=== PATIENT | female | born 1965 | race Caucasian/White ===

== ENCOUNTER 2016-08-26 10:55 | Outpatient (RCR) | payer OTHER ==
--- NOTE | 2016-07-13 15:52 | Diagnostic Imaging Report ---
INDICATION: Followup chest x-ray, no complaints. COMPARISON STUDY: Chest radiograph from June 18. FINDINGS: Frontal and lateral views of the chest demonstrate a 2.4 cm mass in the right upper lobe which has decreased from 4.1 cm. A nodule in the left lung base with adjacent fibrosis has not appreciably changed. The heart size and vascularity are normal. IMPRESSION: 1. Decrease in size of the mass in the right upper lobe. 2. A nodule anteriorly in the left lung base and surrounding infiltrates remain stable. Dictated by: Dictated on workstation # [id number]
--- NOTE | 2016-08-19 14:22 | Diagnostic Imaging Report ---
PA and lateral views of the chest. INDICATION: Solitary lung nodule. COMPARISON: 07/13/2016. FINDINGS: There is a 2.4 cm right upper lobe nodule which appears similar to 07/13/2016. However when compared to earlier radiograph of 06/18/2016, it is smaller at this point compared to prior measurements of more than 4 cm. There is background pulmonary hyperinflation with prominent left pericardial fat pad seen. No effusion or pneumothorax. The mediastinum and yeison appear unremarkable. IMPRESSION: COPD. Unchanged 2.4 cm right upper lobe pulmonary nodule when compared to 07/13/2016. Consider follow-up PA and lateral radiographs in four weeks or CT follow-up. Dictated by: Dictated on workstation # [id number]
[~2016-08-26 10:55] MED LIST changes: -CATHETER FLUSH 10 ML SYR IV PRN; -IOHEXOL 350 MG/ML 100 ML (OMNIPAQUE 350) VIAL IV ONE; -NS 100 ML (IVPB) BAG IV ONE
[2016-08-26 11:11] LABS: BASOPHILS % (AUTO) 1 % (0-10); EOSINOPHILS # (AUTO) 0.1 10^3/uL (0.0-0.3); EOSINOPHILS % (AUTO) 1 % (0-10); LYMPHOCYTES % (AUTO) 38 % (12-44); MEAN CORPUSCULAR HEMOGLOBIN 30 PG (25-34); MEAN CORPUSCULAR HGB CONC 32 G/DL (32-36); MEAN CORPUSCULAR VOLUME 93 FL (80-99); MEAN PLATELET VOLUME 9.5 FL (7.4-10.4); MONOCYTES # (AUTO) 0.4 X 10^3 (0.0-1.0); MONOCYTES % (AUTO) 5 % (0-12); NEUTROPHILS # (AUTO) 4.3 X 10^3 (1.8-7.8); NEUTROPHILS % (AUTO) 55 % (42-75); PLATELET COUNT 298 10^3/uL (130-400); RED BLOOD COUNT 4.72 10^6/uL (4.35-5.85); RED CELL DISTRIBUTION WIDTH 13.1 % (10.0-14.5); WHITE BLOOD COUNT 7.8 10^3/uL (4.3-11.0)
[2016-08-26 11:35] LABS: ALANINE AMINOTRANSFERASE 19 U/L (0-55); ALBUMIN 4.2 GM/DL (3.2-4.5); ANION GAP 8 MMOL/L (5-14); ASPARTATE AMINO TRANSFERASE 25 U/L (5-34); BILIRUBIN,TOTAL 0.3 MG/DL (0.1-1.0); BLOOD UREA NITROGEN 9 MG/DL (7-18); BUN/CREATININE RATIO 10 (0-20); CALCIUM 9.4 MG/DL (8.5-10.1); CARBON DIOXIDE 27 MMOL/L (21-32); CHLORIDE 104 MMOL/L (98-107); CREATININE SERUM 0.94 MG/DL (0.60-1.30); GFR ESTIMATED > 60; GLUCOSE 62 MG/DL (70-105); HEMOLYSIS 10 (-100-29); ICTERUS 0.3 (-100-1.9); LIPEMIA 2 (-100-49); POTASSIUM 3.5 MMOL/L (3.6-5.0); SODIUM 139 MMOL/L (135-145); TOTAL PROTEIN 7.4 GM/DL (6.4-8.2)
== END 2016-10-11 | disposition home or self-care (01) ==
LOC: ONC 10:55
PROVIDERS: ATTEND Internal Medicine Hematology & Oncology
DX: R91.1 Solitary pulmonary nodule (principal); J44.9 Chronic obstructive pulmonary disease, unspecified; Z87.01 Personal history of pneumonia (recurrent); M15.0 Primary generalized (osteo)arthritis; Z87.891 Personal history of nicotine dependence
CPT/HCPCS: 71020; 80053; 85025; 99213; 99214

== ENCOUNTER → 2016-08-26 | Outpatient (CLI) | payer OTHER ==
[~2016-08-26] MED LIST: CATHETER FLUSH 10 ML SYR IV PRN; HYDR-34 PO; IOHEXOL 350 MG/ML 100 ML (OMNIPAQUE 350) VIAL IV ONE; NS 100 ML (IVPB) BAG IV ONE
== END ==
DX: R91.1 Solitary pulmonary nodule (principal); R93.8 Abnormal findings on diagnostic imaging of other specified body structures; J44.9 Chronic obstructive pulmonary disease, unspecified

== ENCOUNTER → 2016-10-13 | Outpatient (CLI) | payer OTHER ==
[~2016-10-13] MED LIST changes: +CATHETER FLUSH 10 ML SYR IV PRN; +IOHEXOL 350 MG/ML 100 ML (OMNIPAQUE 350) VIAL IV ONE
--- NOTE | 2016-10-13 14:13 | Diagnostic Imaging Report ---
PROCEDURE: CT chest with contrast only. TECHNIQUE: Multiple contiguous axial images were obtained through the chest after administration of intravenous contrast. INDICATION: Followup lung lesion. COMPARISON: 08/26/2016 and 06/23/2016. FINDINGS: Evaluation of the lung cotto demonstrates continued improved appearance to the spiculated nodular lesion in the right upper lobe. Lesion measures approximately 2.1 x 1 cm on today's exam, in comparison to 2.6 x 1.6 cm previously. Evaluation of the remainder of the lung cotto continues to demonstrate moderate air trapping within the bilateral mid and upper lung cotto consistent with background of COPD. No new pulmonary nodule or mass is identified. There is no new focal consolidation, pleural effusion, nor pneumothorax. Cardiomediastinal structures show normal heart size. There is no large pericardial effusion. No pathologically enlarged or morphologically abnormal adenopathy is seen within the mediastinum, yeison, nor axilla. Bony structures show no acute abnormalities. Included portions of the upper abdomen are unremarkable as well. IMPRESSION: 1. Continued improved appearance regarding the spiculated nodular lesion in the right upper lobe. Continued short interval three-month followup is recommended. 2. Background of moderate COPD. Dictated by: Dictated on workstation # [id number]
== END ==
LOC: RAD 11:28
PROVIDERS: ATTEND Nurse Practitioner Adult Health
DX: R91.1 Solitary pulmonary nodule (principal); J44.9 Chronic obstructive pulmonary disease, unspecified
CPT/HCPCS: 71260

== ENCOUNTER 2016-10-20 08:52 | Outpatient (RCR) | payer OTHER ==
[2016-10-13 11:19] LABS: BASOPHILS % (AUTO) 0 % (0-10); EOSINOPHILS # (AUTO) 0.1 10^3/uL (0.0-0.3); EOSINOPHILS % (AUTO) 1 % (0-10); LYMPHOCYTES # (AUTO) 3.1 X 10^3 (1.0-4.0); LYMPHOCYTES % (AUTO) 29 % (12-44); MEAN CORPUSCULAR HEMOGLOBIN 30 PG (25-34); MEAN CORPUSCULAR HGB CONC 33 G/DL (32-36); MEAN CORPUSCULAR VOLUME 91 FL (80-99); MEAN PLATELET VOLUME 9.3 FL (7.4-10.4); MONOCYTES # (AUTO) 0.7 X 10^3 (0.0-1.0); MONOCYTES % (AUTO) 7 % (0-12); NEUTROPHILS # (AUTO) 6.8 X 10^3 (1.8-7.8); NEUTROPHILS % (AUTO) 63 % (42-75); PLATELET COUNT 319 10^3/uL (130-400); RED CELL DISTRIBUTION WIDTH 13.5 % (10.0-14.5); WHITE BLOOD COUNT 10.7 10^3/uL (4.3-11.0)
[2016-10-13 12:25] LABS: ALANINE AMINOTRANSFERASE 22 U/L (0-55); ALBUMIN 4.1 GM/DL (3.2-4.5); ANION GAP 8 MMOL/L (5-14); ASPARTATE AMINO TRANSFERASE 21 U/L (5-34); BILIRUBIN,TOTAL 0.6 MG/DL (0.1-1.0); BLOOD UREA NITROGEN 11 MG/DL (7-18); BUN/CREATININE RATIO 12; CALCIUM 9.6 MG/DL (8.5-10.1); CARBON DIOXIDE 28 MMOL/L (21-32); CHLORIDE 102 MMOL/L (98-107); CREATININE SERUM 0.93 MG/DL (0.60-1.30); GFR ESTIMATED > 60; GLUCOSE 100 MG/DL (70-105); SODIUM 138 MMOL/L (135-145); TOTAL PROTEIN 7.2 GM/DL (6.4-8.2)
[~2016-10-20 08:52] MED LIST changes: -CATHETER FLUSH 10 ML SYR IV PRN; -IOHEXOL 350 MG/ML 100 ML (OMNIPAQUE 350) VIAL IV ONE
[2016-10-20 09:02] LABS: BASOPHILS # (AUTO) 0.1 10^3/uL (0.0-0.1); BASOPHILS % (AUTO) 1 % (0-10); EOSINOPHILS # (AUTO) 0.1 10^3/uL (0.0-0.3); EOSINOPHILS % (AUTO) 2 % (0-10); LYMPHOCYTES # (AUTO) 3.1 X 10^3 (1.0-4.0); LYMPHOCYTES % (AUTO) 42 % (12-44); MEAN CORPUSCULAR HEMOGLOBIN 31 PG (25-34); MEAN CORPUSCULAR HGB CONC 33 G/DL (32-36); MEAN CORPUSCULAR VOLUME 93 FL (80-99); MEAN PLATELET VOLUME 9.2 FL (7.4-10.4); MONOCYTES # (AUTO) 0.5 X 10^3 (0.0-1.0); MONOCYTES % (AUTO) 6 % (0-12); NEUTROPHILS # (AUTO) 3.7 X 10^3 (1.8-7.8); NEUTROPHILS % (AUTO) 50 % (42-75); PLATELET COUNT 321 10^3/uL (130-400); RED BLOOD COUNT 4.21 10^6/uL (4.35-5.85); RED CELL DISTRIBUTION WIDTH 13.5 % (10.0-14.5); WHITE BLOOD COUNT 7.4 10^3/uL (4.3-11.0)
[2016-10-20 09:38] LABS: ALANINE AMINOTRANSFERASE 12 U/L (0-55); ALBUMIN 3.9 GM/DL (3.2-4.5); ANION GAP 7 MMOL/L (5-14); ASPARTATE AMINO TRANSFERASE 14 U/L (5-34); BILIRUBIN,TOTAL 0.3 MG/DL (0.1-1.0); BLOOD UREA NITROGEN 9 MG/DL (7-18); BUN/CREATININE RATIO 10; CALCIUM 9.2 MG/DL (8.5-10.1); CARBON DIOXIDE 26 MMOL/L (21-32); CHLORIDE 104 MMOL/L (98-107); CREATININE SERUM 0.87 MG/DL (0.60-1.30); GFR ESTIMATED > 60; GLUCOSE 93 MG/DL (70-105); SODIUM 137 MMOL/L (135-145); TOTAL PROTEIN 6.5 GM/DL (6.4-8.2)
== END 2016-12-04 | disposition home or self-care (01) ==
LOC: ONC 08:52
PROVIDERS: ATTEND Internal Medicine Hematology & Oncology
DX: Z87.01 Personal history of pneumonia (recurrent); R91.1 Solitary pulmonary nodule; M15.0 Primary generalized (osteo)arthritis; J44.9 Chronic obstructive pulmonary disease, unspecified; Z87.891 Personal history of nicotine dependence
CPT/HCPCS: 36415; 80053; 85025; 99213